=== PATIENT | female | born 1975 | race Caucasian/White ===

== ENCOUNTER 2019-11-30 20:12 | Emergency (ER) | payer MEDICAID ==
[~2019-11-30] VITALS: Ht 152.4 cm; Wt 52.2 kg
[2019-11-30 21:22] LABS: ABSOLUTE NEUTROPHILS 5.4 thou/uL (1.4-8.2); BASOPHILS 0.7 % (0.0-2.0); HEMATOCRIT 30.9 % (37.0-47.0); LYMPHOCYTES 35.5 % (24.0-44.0); MCH 32.9 pg (26.0-34.0); MCHC 35.6 g/dL (28.0-37.0); MCV 92.5 fL (80.0-100.0); MONOCYTES 6.9 % (1.0-8.0); PLATELET COUNT 294 thou/uL (150-400); POLYS 51.9 % (36.0-66.0); RBC 3.34 mil/uL (4.20-5.00); RDW 12.7 % (10.5-14.5); WBC 10.4 thou/uL (4.0-11.0)
[2019-11-30 21:30] LABS: CALCIUM 8.4 mg/dL (8.5-10.1); POTASSIUM 3.4 mmol/L (3.5-5.1)
[2019-11-30 21:35] LABS: TOTAL BILIRUBIN 0.1 mg/dL (0.2-1.0); TOTAL PROTEIN 6.6 g/dL (6.4-8.2)
[2019-12-01] MEDS ORDERED: IBUPROFEN 600600 M1 PO (01:24)
[2019-12-01] MEDS ORDERED: KEFLEX500 M1 PO (01:25)
[2019-12-01 01:41] VITALS: BP 101/67
== END 2019-12-01 01:42 | disposition home or self-care (01) ==
LOC: ER 20:12
PROVIDERS: Emergency Medicine
DX: M25.571 Pain in right ankle and joints of right foot (principal); R22.41 Localized swelling, mass and lump, right lower limb; F17.210 Nicotine dependence, cigarettes, uncomplicated